=== PATIENT | female | born 1965 | race Caucasian/White ===

== ENCOUNTER 2017-09-16 14:00 | Emergency (ER) | payer BC, SELFPAY ==
[2017-09-16 14:01] VITALS: BP 123/106; PULSE 103; RESP 20; TEMP 37.3; O2SAT 93; BMI 38.3
--- NOTE | 2017-09-16 14:03 | RAD_ITS ---
STUDY: X-RAY - RIGHT HAND REASON FOR EXAM: Female, 51 years old. Window slammed shut on hand. Pain in the index finger. TECHNIQUE: 3 view(s) of the hand. COMPARISON: None. FINDINGS: Normal radiocarpal articulation. Normal distal radioulnar joint. Normal visualized carpal bones. Normal carpal articulations Normal carpometacarpal articulation of the thumb. Normal second through fifth carpometacarpal joints. Normal metacarpi. There is degenerative arthrosis of the metacarpophalangeal (MCP) joints. Normal interphalangeal joint of the thumb. Normal proximal and distal phalanges of the thumb. Normal metacarpophalangeal joints of the second through fifth fingers. There is diffuse articular joint space narrowing of the proximal and distal interphalangeal joints of the second through fifth fingers, but without erosive changes or periarticular soft tissue swelling. Normal phalanges of the second through fifth fingers. The soft tissue structures are unremarkable. RAD/Hand Min 3 Views IMPRESSION: Mild arthrosis of the right hand. There is no evidence of acute fracture or dislocation. Electronically Signed: Harish Gibson DO at 14:48 EDT Tel [phone], Service support ,
[2017-09-16] MEDS: Naproxen 500 MG Tablet PO (14:44)
--- NOTE | 2017-09-16 15:01 | ED.VISSUMM ---
- ER Visit Summary Date of Service: 09/16/17 Chief Complaint: Right hand injury History of Present Illness: The patient is a 51 F who had her hands placed in the lateral position. A window came down and shut on her hand, with impact primarily to the index metacarpal region. Patient complains of pain to this area. She has full range of motion of her fingers. She is right-hand dominant. She has not yet taken anything for pain. Physical Examination: Vital signs are remarkable for blood pressure of 123/106, otherwise unremarkable. Head neck examination is unremarkable. Heart is regular rate and rhythm. On lung sounds are clear. Right upper extremity examination reveals tenderness over the index metacarpal with mild edema. Full range of motion is noted. There is normal cap refill. Normal sensation. There is no tenderness at the wrist or elbow. Test Results: Right hand x-rays reveal no evidence of acute fracture. Emergency Department Course and Treatment: Patient is given Naprosyn. Test results were discussed with the patient. Chad wrap is applied. Treatment Plan: [] Disposition: Discharge Impression: Crush injury right hand This note was generated with [employer] dictation software. It may contain incorrect words, spelling, and punctuation that were not noted in review of the chart prior to signing ED Disposition - Plan for ED Patient: Disposition: Home or Assisted Living Chief Complaint: Upper Extremity Injury Instructions: ED Crush Injury Finger No Fx Referrals: Ministerio Parra [Primary Care Provider] - As Needed
[2017-09-16 15:14] VITALS: BP 132/91; PULSE 80; RESP 18
== END 2017-09-16 15:19 | disposition home or self-care (01) ==
PROVIDERS: Emergency Provider Emergency Medicine; Family Provider Family Medicine; PCP Family Medicine
DX: S67.21XA Crushing injury of right hand, initial encounter (principal); Z87.891 Personal history of nicotine dependence; X36.1XXA Avalanche, landslide, or mudslide, initial encounter; Y93.89 Activity, other specified; Y92.009 Unspecified place in unspecified non-institutional (private) residence as the place of occurrence of the external cause; Y99.8 Other external cause status
CPT/HCPCS: 73130; 99282; J7030; A4216

== ENCOUNTER → 2020-11-14 16:28 | Outpatient (CLI) | payer BC, SELFPAY | PROVIDERS: PCP Family Medicine | DX: E03.9 Hypothyroidism, unspecified (principal) | CPT/HCPCS: 36415; 84443 ==